=== PATIENT | female | born 1960 | race Caucasian/White ===

== ENCOUNTER 2018-01-25 10:58 | Emergency (ER) | payer MEDICAID ==
[~2018-01-25] VITALS: Ht 157.5 cm; Wt 70.8 kg
[2018-01-25 11:10] VITALS: Ht 157.5 cm; Wt 70.8 kg
[2018-01-25 12:43] VITALS: BP 138/81
== END 2018-01-25 12:43 | disposition home or self-care (01) ==
LOC: ED 10:58
DX: S83.91XA Sprain of unspecified site of right knee, initial encounter (principal); Z98.890 Other specified postprocedural states; X50.9XXA Other and unspecified overexertion or strenuous movements or postures, initial encounter; Y93.84 Activity, sleeping; Y99.8 Other external cause status; Y92.89 Other specified places as the place of occurrence of the external cause
CPT/HCPCS: J1885